=== PATIENT | female | born 1945 | race Caucasian/White ===

== ENCOUNTER → 2017-03-09 | Outpatient (CLI) | payer MEDICARE ==
[~2017-03-09] MED LIST: /MOXI40TA; /TIOT18INH INH; ACTO; ACTOS PO; ALBUTEROL INH; ALBUTEROL MDI; AMLO10TA; ASPI81TA83; ASPI81TA83 OR; ASPI81TA85 PO; BABY81CH; COMBIVENT; COUM1TAB17 PO; DIOV160T5; DIOV320T; EXCETAB80 PO; GLUC1000 OR; GLUC5TAB; IBUP600T OR; IMETREX PO; INSULADS SC; INSUR SC; LEXAPRO; LIPI10TA; METO50TA7 PO; NEUR300C PO; PERC5TAB8; PERC7.5T8; PERCOCET PO; PLAV1TAB2 PO; PRED10TA2; PRIL20CA; PRIL20CA OR; PRIL20CA PO; SENN8.6T5; SING10TA31 OR; SYNT100T; TYLE325T5 PO; TYLENOL #3 OR; VALI5TAB PO; VARE1TA; XANA0.5T PO; XOPE1.252; ZANA4CAP PO; ZEBE5TAB; ZOCO40TA; [UNRECOGNIZED DRUG - OTHER]
[2017-03-09 12:01] LABS: MEAN CORPUSCULAR HEMOGLOBIN 29.5 pg (27.0-33.0); MEAN CORPUSCULAR HGB CONC 33.4 g/dl (32.0-36.5); MEAN CORPUSCULAR VOLUME 88.4 fl (80.0-96.0); RED CELL DISTRIBUTION WIDTH 13.9 % (11.5-14.5)
[2017-03-09 12:25] LABS: CALCIUM LEVEL 9.4 MG/DL (8.8-10.2); CREATININE FOR GFR 1.11 MG/DL (0.55-1.02); GLOMERULAR FILTRATION RATE 51.7 (>39); POTASSIUM SERUM 4.4 MEQ/L (3.5-5.1)
== END ==
LOC: M LAB 11:32
PROVIDERS: ATTEND Surgery Vascular Surgery
DX: I70.212 Atherosclerosis of native arteries of extremities with intermittent claudication, left leg (principal)

== ENCOUNTER → 2017-03-22 | Outpatient (CLI) | payer MEDICARE ==
[~2017-03-22] MED LIST changes: +HEPARIN 1,000 UNITS/ML 10ML VIAL (FOR RADIOLOGY& DIALYSIS ONLY) As Ordered ONE; +ISOVUE-300 61% 50ML VIAL (Q9967) As Ordered ONE; +MIDAZOLAM INJ 2 MG/2 ML VIAL (J2250) As Ordered ONE; +fentaNYL 100 MCG/2 ML INJECTION (J3010) As Ordered ONE
--- NOTE | 2017-03-22 16:39 | REP ---
C-ARM VIEWS DURING ABDOMINAL AORTOGRAM AND LEFT LOWER EXTREMITY ANGIOGRAM: Multiple C-ARM views are performed. Abdominal aorta is visualized as well as the arteries of the left lower extremity. 3.3 minutes of fluoroscopic time was utilized for the procedure. Signed by Aiden Ferris MD 03/24/2017 05:47 P
--- NOTE | 2017-04-05 23:22 | ROOPDOC ---
[facility] Report Of Operation Report of Operation DATE OF PROCEDURE: 03/22/17 PREOPERATIVE DIAGNOSES: Bilateral lower extremity claudication left greater than right. POSTOPERATIVE DIAGNOSES: Lateral lower extremity claudication left greater than right. PROCEDURE: Aortogram. Iliofemoral angiogram. Selective left common femoral artery catheter placement with left lower extremity angiogram. Selective left popliteal artery catheter placement with angiogram. Left superficial femoral artery angioplasty with 6 mm x 100 mm balloon. Left popliteal artery angioplasty with 6 mm x 100 mm balloon. Mynx closure of the right common femoral arteriotomy SURGEON: Dr. Brittany Calderón MD LOCAL [place] TRUCK DRIVER: None INDICATION: Patient is a 72-year-old white female with with bilateral lower extremity claudication which is debilitating. The left lower extremity is more symptomatic than the right. Patient was evaluated and the recommendation was to undergo a left lower extremity and screen with possible angioplasty, stent and/or atherectomy. Risks benefits and alternative treatment options were discussed with the patient. Benefits included but are not limited to resolution of symptoms. Alternative treatment options included but are not limited to no intervention. Risks included but are not limited to infection, bleeding, renal failure requiring hemodialysis, retroperitoneal hematoma, possible need for open surgical intervention, cerebrovascular accident, myocardial infarction, pulmonary embolus, DVT, contrast dye reaction, loss of limb, loss of life and poor outcome. All the patient's questions were answered. The patient understands these risks, benefits and alternative treatment options and accepts the risks associated with the procedure and the patient agrees to proceed with the procedure. ANESTHESIA: Local with sedation with 2 mg of Versed, 100 g of fentanyl, and 10 cc of 2% lidocaine.. SEDATION TIME: 11:02 AM to 11:50 AM. The sedation and cardiopulmonary monitoring were performed by the RN in the room, under my direct supervision. The entire case was completed under my direction and I was present for the entire case. ESTIMATED BLOOD LOSS: Approximately 15 mL. IV FLUIDS: 100 cc HEPARIN: 6000 units PROTAMINE: None FLUORO TIME: 3.3 min. CONTRAST: 25 cc COMPLICATIONS: None. DRAINS: None SPECIMENS: None IMPLANTS: Right common femoral Mynx closure device PROCEDURE: The patient was taken to the angiography suite, placed supine on the angiography room table and prepped and draped in a standard surgical fashion. A procedural time out was performed by myself and the members of the team in the procedure room confirming the correct procedure, patient and laterality. The right common femoral artery was then cannulated with a micropuncture needle after anesthetizing the overlying skin with 2% lidocaine. The micropuncture wire was advanced through the micropuncture needle which was upsized to a micropuncture sheath. The [place] wire was then advanced through the micropuncture sheath which was upsized to a 5 Q[place] sheath. The Omni flush catheter was advanced over the [place] wire placed in the aorta and in aortogram was performed. The catheter was pulled down to the bifurcation of the iliac arteries in an iliofemoral angiogram was performed. The catheter was then directed over the bifurcation of the iliac arteries using the Qu[place]o wire and placed selectively in the left common femoral artery and a left lower extremity angiogram was performed. This showed an approximate 90% stenosis at the junction of the left superficial femoral artery and popliteal artery.. A 6 Q[place] destination sheath was then exchanged for the 5 [place] sheath and the 6 [place] destination sheath was brought up and over the bifurcation and positioned with the tip in the left common femoral artery. A angle Glidewire catheter were used to traverse the superficial femoral artery and popliteal artery and the catheter was used across the stenoses. Catheter was then placed in the popliteal artery below the stenosis and angiogram performed showing peroneal single vessel runoff into the foot. The superficial femoral artery and popliteal artery were angioplastied with a 6 mm x 100 mm balloon. A completion angiogram was then performed showing resolution of the stenosis in the superficial femoral and popliteal arteries with preserved tibial vessel runoff into the foot. Catheters and wires were removed. The 6 Q[place] destination sheath was exchanged for a short 6 [place] sheath. The arteriotomy in the right common femoral artery was closed using a Mynx closure device with an additional 10 min. of adjunctive pressure applied for hemostasis, which was noted. Dressings were then applied. There were no complications. Dr. Calderón was present for and directed the entire case. The patient was transferred to the holding area and subsequently discharged in stable condition. RADIOLOGIC SUPERVISION AND INTERPRETATION: The aortogram showed aortic be widely patent with some calcific plaquing. The supra renal aorta was patent. The celiac S appear mesenteric arteries were patent. The renal arteries were patent bilaterally. The infrarenal aorta was patent as well as the common iliac external iliac and internal iliac arteries bilaterally. The right common femoral and proximal superficial femoral and profunda femoris arteries were patent, there was no visualization of the right lower extremity below the puncture site. The left common femoral artery and profunda femoris arteries were patent. There was a high-grade stenosis at the junction of the superficial femoral and popliteal arteries which was approximately 90% stenotic. The lesion was crossed and a catheter placed in the below-knee popliteal artery and angiogram was performed showing single vessel runoff via the peroneal artery into the left foot. The superficial femoral and popliteal artery were and plasty with a 6 mm x 100 mm balloon. Completion angiography showed resolution of the stenosis with preserved peroneal artery runoff into the left foot. A Mynxclosure device was used to close the arteriotomy in the right common femoral artery. Darci Calderón MD Apr 05, 2017 23:22
== END | disposition home or self-care (01) ==
LOC: M IRPRO 09:14 → M RADPRO 09:14
PROVIDERS: ATTEND Surgery Vascular Surgery
DX: I70.212 Atherosclerosis of native arteries of extremities with intermittent claudication, left leg (principal)
CPT/HCPCS: 37224; 75625; 75716; 75774; 99152; 99153; C1725; C1760; C1769; C1887; C1894; J2250; J3010; Q9967

== ENCOUNTER → 2017-03-30 | Outpatient (CLI) | payer MEDICARE ==
[~2017-03-30] MED LIST changes: -HEPARIN 1,000 UNITS/ML 10ML VIAL (FOR RADIOLOGY& DIALYSIS ONLY) As Ordered ONE; -ISOVUE-300 61% 50ML VIAL (Q9967) As Ordered ONE; -MIDAZOLAM INJ 2 MG/2 ML VIAL (J2250) As Ordered ONE; -fentaNYL 100 MCG/2 ML INJECTION (J3010) As Ordered ONE
[2017-03-30 13:32] LABS: MEAN CORPUSCULAR HEMOGLOBIN 29.4 pg (27.0-33.0); MEAN CORPUSCULAR HGB CONC 33.1 g/dl (32.0-36.5); MEAN CORPUSCULAR VOLUME 88.9 fl (80.0-96.0); RED CELL DISTRIBUTION WIDTH 13.7 % (11.5-14.5); WHITE BLOOD COUNT 6.4 K/mm3 (4.0-10.0)
[2017-03-30 13:59] LABS: CALCIUM LEVEL 9.4 MG/DL (8.8-10.2); CREATININE FOR GFR 1.14 MG/DL (0.55-1.02); GLOMERULAR FILTRATION RATE 50.2 (>39)
== END ==
LOC: M LAB 11:44
PROVIDERS: ATTEND Surgery Vascular Surgery
DX: M79.604 Pain in right leg (principal)

== ENCOUNTER → 2017-04-12 | Outpatient (CLI) | payer MEDICARE ==
[~2017-04-12] MED LIST changes: +HEPARIN 1,000 UNITS/ML 10ML VIAL (FOR RADIOLOGY& DIALYSIS ONLY) As Ordered ONE; +ISOVUE-300 61% 50ML VIAL (Q9967) As Ordered ONE; +MIDAZOLAM INJ 2 MG/2 ML VIAL (J2250) As Ordered ONE; +PROTAMINE SULF INJ 50 MG/5 ML VIAL (J2720) As Ordered ONE; +fentaNYL 100 MCG/2 ML INJECTION (J3010) As Ordered ONE
--- NOTE | 2017-05-03 10:22 | REPKIM ---
DATE OF PROCEDURE: 04/12/2017 PREPROCEDURE DIAGNOSIS: Bilateral lower extremity claudication status post left superficial femoral and popliteal artery angioplasty. POSTPROCEDURE DIAGNOSIS: Bilateral lower extremity claudication status post left superficial femoral and popliteal artery angioplasty. PROCEDURE: Iliofemoral angiogram, selective right common femoral artery catheter placement with right lower extremity angiogram right superficial femoral, selective catheter placement right popliteal artery, selective catheter placement right popliteal artery angioplasty with 6 x 200 mm balloon, right superficial femoral artery angioplasty with 6 x 200 mm balloon, right common femoral artery angioplasty with 6 x 200 mm balloon, Mynx closure of the left common femoral arteriotomy. SURGEON: Dr. Racquel Calderón HEALTH INSPECTOR: Anneliese Santana and Kena Fabian. ANESTHESIA: Local with sedation with 2 mg of Versed, 100 mcg of Fentanyl and 10 mL of 2% lidocaine. ESTIMATED BLOOD LOSS: SEDATION TIME: From 10:03 a.m. to 10:40 a.m. with the sedation administered by the nurse in the room, the cardiopulmonary monitoring performed by the nurse in the room and the entire procedure being performed under my direction and supervision. FLUORO TIME: 3.9 minutes. CONTRAST: 21 mL, heparin 6000 units, protamine 50 mg. COMPLICATION: None. DRAINS: None. SPECIMENS: None. IMPLANTS: Left common femoral arteriotomy closure with a Mynx closure device. INDICATION: Patient is a 72-year-old female with bilateral lower extremity claudication left greater than right, who underwent left lower extremity angiogram with angioplasty and resolution of her symptoms. Patient has continued claudication of the right lower extremity and will now undergo a right lower extremity angiogram with possible angioplasty and/or stent. Risks, benefits and alternative treatment options were discussed with the patient. Benefits included but were not limited to treatment of the atherosclerotic arterial occlusive disease with resolution of the symptoms. Alternative treatment options included but were not limited to no intervention. Risks included but were not limited to infection, bleeding, renal failure requiring hemodialysis, possible need for open surgical intervention, retroperitoneal hematoma, cerebrovascular accident, myocardial infarction, pulmonary embolus, deep venous thrombosis (DVT), loss of limb, loss of life and poor outcome. Patient's questions were answered. Patient voices understanding of these risks, benefits and alternative treatment options. Patient agrees to accept these risks and proceed with a right lower extremity angiogram with possible angioplasty and/or stent. PROCEDURE: The patient was taken to the angiography suite and placed supine on the angiography room table and then prepped and draped in a standard surgical fashion. A time out was conducted by myself and the team within the room confirming the appropriate procedure, patient and laterality. The left common femoral artery was then cannulated with a micropuncture needle after anesthetizing the overlying skin with 1% lidocaine. The micropuncture wire was advanced through the micropuncture needle which was upsized to a micropuncture sheath. A [place] wire was advanced through the micropuncture sheath which was upsized to a #5-[place] sheath. An Omniflush catheter was placed in the aorta and an iliofemoral angiogram was performed. The catheter was then directed over the bifurcation of the iliac arteries, placed in the right common femoral artery and a right lower extremity angiogram was performed. Catheter was then directed into the superficial femoral artery and a selected right superficial femoral artery angiogram with runoff was performed. There was a lesion in the superficial femoral artery and popliteal artery junction which was high grade. This was crossed. The catheter was placed in the popliteal artery and a selected popliteal artery angiograph with runoff was performed confirming intraluminal positioning after which the right popliteal artery and superficial femoral artery were angioplastied with a 6 x 200 balloon. There was also a lesion in the proximal common femoral artery and superficial femoral artery junction which was approximately 60%. The common femoral artery and superficial femoral artery also underwent angioplasty with a 6 x 200 balloon. A completion angiogram showed resolution of the stenoses and good flow through the common femoral and superficial femoral and popliteal arteries. Catheters and wires were removed. The sheath was removed and then a Mynx closure device was used to close the arteriotomy in the left common femoral artery with an additional 10 minutes of adjunctive pressure applied for hemostasis. Steri-Strips were then applied. Patient tolerated the procedure well. All instruments, sponge and needle counts were correct at the end of the case. There were no complications. Dr. Calderón was present for and directed the entire case. Patient was transferred to the holding area and subsequently discharged in stable condition. RADIOLOGIC SUPERVISION INTERPRETATION: The initial iliofemoral angiogram showed the infrarenal aorta to have some mild irregularity and calcific plaquing but no specific stenosis or occlusion. The left common iliac, external and internal iliac arteries were widely patent as well as the left common femoral and proximal superficial femoral and profunda femoris arteries. There is no visualization of the left lower extremity below the puncture site. The right common iliac, external and internal iliac arteries were widely patent as well as the right common femoral artery. There was stenosis at the right common femoral artery junction and superficial femoral artery which was approximately 60%. The superficial femoral artery was patent along the length of the upper thigh with some mild luminal irregularities within the superficial femoral artery. There was a high grade stenosis in the superficial femoral artery just above the adductor canal which was approximately 98%. There was a second stenosis which was long segment in the superficial femoral and popliteal artery in the above knee region which were approximately 80-90%. The remainder of the above knee popliteal artery was patent giving rise to "hernial artery" of the lower extremity which is dominant. The anterior tibial artery was patent but small and severely diseased. There was no visualization of the posterior tibial artery. The popliteal artery, superficial femoral artery and common femoral artery were all angioplastied with 6 x 200 balloon with a completion angiogram showing resolution of the stenosis and excellent flow to the common femoral artery into the superficial femoral artery and popliteal artery with preserved peroneal and anterior tibial artery runoff into the right foot. A Mynx closure device was used to close the arteriotomy in the left common femoral artery.
== END | disposition home or self-care (01) ==
LOC: M RADPRO 08:36 → M IRPRO 08:36
PROVIDERS: ATTEND Surgery Vascular Surgery
DX: I70.211 Atherosclerosis of native arteries of extremities with intermittent claudication, right leg (principal)
CPT/HCPCS: 37224; 75630; 75710; 75774; 99152; 99153; C1725; C1760; C1769; C1887; C1894; J2250; J2720; J3010; Q9967

== ENCOUNTER → 2017-06-23 | Outpatient (CLI) | payer MEDICARE ==
[~2017-06-23] MED LIST changes: -HEPARIN 1,000 UNITS/ML 10ML VIAL (FOR RADIOLOGY& DIALYSIS ONLY) As Ordered ONE; -ISOVUE-300 61% 50ML VIAL (Q9967) As Ordered ONE; -MIDAZOLAM INJ 2 MG/2 ML VIAL (J2250) As Ordered ONE; -PROTAMINE SULF INJ 50 MG/5 ML VIAL (J2720) As Ordered ONE; -fentaNYL 100 MCG/2 ML INJECTION (J3010) As Ordered ONE
--- NOTE | 2017-06-23 16:15 | REP ---
BILATERAL LOWER EXTREMITY DUPLEX DOPPLER ARTERIAL ULTRASOUND: Real-time ultrasound evaluation and duplex Doppler interrogation of bilateral lower extremity arterial systems is performed. KINGS is measured bilaterally and is 0.85 bilaterally. On the right peak systolic velocity of the common femoral artery is 91.7 cm/s with biphasic wave form, peak systolic velocity right superficial femoral artery is 160 cm per second with triphasic wave form and right popliteal artery 71 cm/s with triphasic wave form. There is moderate severe plaquing throughout the right lower extremity arterial system. Right profunda demonstrates peak systolic velocity of 86.2 cm/s with monophasic wave form that is severely stenotic or occluded. Distal anterior and posterior tibial arteries demonstrate monophasic wave forms and this suggests severe stenosis. On the left peak systolic velocity of the common femoral artery is 121 cm/s with triphasic wave form, peak systolic velocity in the superficial artery is 118 cm/s. Triphasic wave form and left popliteal artery 60 cm/s with triphasic wave form. Left lower extremity arteries demonstrate moderate to severe plaquing. Monophasic wave forms in the distal left anterior and posterior tibial arteries suggests severe stenosis. Reversal of flow in the left distal anterior tibial arteries suggests occlusion, more proximally with reconstitution from a distal collateral vessel. Signed by Aiden Ferris MD 06/24/2017 05:42 P
== END ==
LOC: M RAD 12:23
PROVIDERS: ATTEND Surgery Vascular Surgery
DX: I70.213 Atherosclerosis of native arteries of extremities with intermittent claudication, bilateral legs (principal)

== ENCOUNTER → 2017-07-19 | Outpatient (CLI) | payer MEDICARE ==
--- NOTE | 2017-07-19 13:49 | REP ---
Clinical: Dyspnea. Cough. Comparison: 10/30/2014 . Technique: PA and lateral. Findings: The mediastinum and cardiac silhouette are normal. The lung huynh are clear and without acute consolidation, effusion, or pneumothorax. The skeletal structures are intact and normal. Evidence of prior thyroid and mediastinal/cardiac surgery. Impression: 1. No acute cardiopulmonary process. Signed by Maximus Avery MD 07/19/2017 12:16 P
== END ==
LOC: M SMT 11:56
PROVIDERS: ATTEND Physician Assistant
DX: J15.8 Pneumonia due to other specified bacteria (principal)

== ENCOUNTER 2017-08-28 11:08 | Emergency (ER) | payer MEDICARE ==
[2017-08-28] MEDS: IPRATROPIUM 0.5MG/ALBUTEROL 2.5MG INH SOL UD 3ML (DUONEB)(J7620) NEB ×2 (13:36)
[2017-08-28] MEDS: methylPREDNISolone INJ 125 MG/2 ML VIAL (J2930) IM (13:50)
[2017-08-28 14:15] LABS: BEDSIDE GLUCOSE 195 MG/DL (83-110)
== END 2017-08-28 14:26 | disposition home or self-care (01) ==
LOC: M ED 11:08
DX: J44.1 Chronic obstructive pulmonary disease with (acute) exacerbation (principal); E11.65 Type 2 diabetes mellitus with hyperglycemia; R94.31 Abnormal electrocardiogram [ECG] [EKG]; I25.10 Atherosclerotic heart disease of native coronary artery without angina pectoris; F17.210 Nicotine dependence, cigarettes, uncomplicated; Z79.4 Long term (current) use of insulin; Z79.899 Other long term (current) drug therapy; Z79.82 Long term (current) use of aspirin; Z88.1 Allergy status to other antibiotic agents; Z87.19 Personal history of other diseases of the digestive system; Z95.5 Presence of coronary angioplasty implant and graft; Z98.890 Other specified postprocedural states; Z90.89 Acquired absence of other organs
CPT/HCPCS: J2930

== ENCOUNTER → 2017-09-20 | Outpatient (CLI) | payer MEDICARE ==
[2017-09-20 17:40] LABS: BASO % 0.5 % (0.0-1.0); EOS # 0.2 10^3/uL (0.0-0.50); EOS % 3.3 % (0.0-3.0); HEMATOCRIT 43.9 % (36.0-47.0); HEMOGLOBIN 14.1 g/dl (12.0-16.0); IMMATURE GRANULOCYTE % 0.5 % (0-0); LYMPH % 33.7 % (24.0-44.0); MEAN CORPUSCULAR HEMOGLOBIN 27.9 pg (27.0-33.0); MEAN CORPUSCULAR HGB CONC 32.1 g/dl (32.0-36.5); MEAN CORPUSCULAR VOLUME 86.9 fl (80.0-96.0); MONO # 0.5 10^3/uL (0.0-0.8); MONO % 7.7 % (0.0-5.0); NEUTROPHILS # 3.3 10^3/uL (1.8-7.7); NEUTROPHILS % 54.3 % (36.0-66.0); PLATELET COUNT, AUTOMATED 328 10^3/uL (150-450); RED BLOOD COUNT 5.05 10^6/uL (4.00-5.40); RED CELL DISTRIBUTION WIDTH 13.2 % (11.5-14.5)
[2017-09-20 18:10] LABS: ALBUMIN 3.6 GM/DL (3.2-5.2); ALBUMIN/GLOBULIN RATIO 1.06 (1.00-1.93); ALKALINE PHOSPHATASE 115 U/L (45-117); ALT/SGPT 21 U/L (12-78); ANION GAP 8 MEQ/L (8-16); AST/SGOT 7 U/L (7-37); BILIRUBIN,TOTAL 0.2 MG/DL (0.2-1.0); BLOOD UREA NITROGEN 18 MG/DL (7-18); CALCIUM LEVEL 9.8 MG/DL (8.8-10.2); CARBON DIOXIDE LEVEL 33 MEQ/L (21-32); CHLORIDE LEVEL 94 MEQ/L (98-107); CREATININE FOR GFR 1.27 MG/DL (0.55-1.02); FREE T4 0.98 NG/DL (0.76-1.46); GLOMERULAR FILTRATION RATE 44.3 (>39); NT-PRO BNP 164 PG/ML (<125); SODIUM LEVEL 135 MEQ/L (136-145)
[2017-09-20 18:31] LABS: GLUCOSE, FASTING 544 MG/DL (70-100)
[2017-09-20 18:32] LABS: POTASSIUM SERUM 5.5 MEQ/L (3.5-5.1)
== END ==
LOC: M SMT 14:18
DX: R53.83 Other fatigue (principal)
CPT/HCPCS: 84443

== ENCOUNTER → 2017-09-27 | Outpatient (CLI) | payer MEDICARE | LOC: M RAD 15:16 | DX: M51.36 Other intervertebral disc degeneration, lumbar region (principal) | CPT/HCPCS: 72148 ==

== ENCOUNTER → 2018-01-05 | Outpatient (CLI) | payer MEDICARE | LOC: M RAD 11:33 | DX: I70.233 Atherosclerosis of native arteries of right leg with ulceration of ankle (principal) | CPT/HCPCS: 93925 ==

== ENCOUNTER → 2018-01-27 | Outpatient (CLI) | payer MEDICARE ==
[~2018-01-27] MED LIST changes: -/MOXI40TA; -/TIOT18INH INH; +ACETAMINOPHEN 325 MG TAB As Ordered; -ACTO; -ACTOS PO; -ALBUTEROL INH; -ALBUTEROL MDI; -AMLO10TA; -ASPI81TA83; -ASPI81TA83 OR; -ASPI81TA85 PO; -BABY81CH; -COMBIVENT; -COUM1TAB17 PO; -DIOV160T5; -DIOV320T; -EXCETAB80 PO; -GLUC1000 OR; -GLUC5TAB; +HEPARIN 1,000 UNITS/ML 10ML VIAL (FOR RADIOLOGY& DIALYSIS ONLY) As Ordered; -IBUP600T OR; -IMETREX PO; -INSULADS SC; -INSUR SC; +ISOVUE-300 61% 50ML VIAL (Q9967) As Ordered; -LEXAPRO; +LIDOCAINE 2% MDV 20 ML VIAL As Ordered; -LIPI10TA; -METO50TA7 PO; +MIDAZOLAM INJ 2 MG/2 ML VIAL (J2250) As Ordered; -NEUR300C PO; -PERC5TAB8; -PERC7.5T8; -PERCOCET PO; -PLAV1TAB2 PO; -PRED10TA2; -PRIL20CA; -PRIL20CA OR; -PRIL20CA PO; -SENN8.6T5; -SING10TA31 OR; -SYNT100T; -TYLE325T5 PO; -TYLENOL #3 OR; -VALI5TAB PO; -VARE1TA; -XANA0.5T PO; -XOPE1.252; -ZANA4CAP PO; -ZEBE5TAB; -ZOCO40TA; -[UNRECOGNIZED DRUG - OTHER]; +fentaNYL 100 MCG/2 ML INJECTION (J3010) As Ordered
[2018-01-27 06:58] LABS: HEMATOCRIT 42.1 % (36.0-47.0); HEMOGLOBIN 13.8 g/dl (12.0-15.5); MEAN CORPUSCULAR HEMOGLOBIN 28.8 pg (27.0-33.0); MEAN CORPUSCULAR HGB CONC 32.8 g/dl (32.0-36.5); MEAN CORPUSCULAR VOLUME 87.9 fl (80.0-96.0); PLATELET COUNT, AUTOMATED 337 10^3/uL (150-450); RED BLOOD COUNT 4.79 10^6/uL (4.00-5.40); RED CELL DISTRIBUTION WIDTH 13.4 % (11.5-14.5); WHITE BLOOD COUNT 8.3 10^3/uL (4.0-10.0)
[2018-01-27 07:17] LABS: ANION GAP 5 MEQ/L (8-16); BLOOD UREA NITROGEN 29 MG/DL (7-18); CALCIUM LEVEL 8.6 MG/DL (8.8-10.2); CARBON DIOXIDE LEVEL 31 MEQ/L (21-32); CHLORIDE LEVEL 105 MEQ/L (98-107); GLOMERULAR FILTRATION RATE 52.3 (>39); GLUCOSE, FASTING 153 MG/DL (70-100); POTASSIUM SERUM 4.5 MEQ/L (3.5-5.1); SODIUM LEVEL 141 MEQ/L (136-145)
== END | disposition home or self-care (01) ==
LOC: M IRPRO 06:36
DX: I70.221 Atherosclerosis of native arteries of extremities with rest pain, right leg (principal); Z72.0 Tobacco use; E11.9 Type 2 diabetes mellitus without complications; I25.10 Atherosclerotic heart disease of native coronary artery without angina pectoris; J44.9 Chronic obstructive pulmonary disease, unspecified; M51.36 Other intervertebral disc degeneration, lumbar region; M48.062 Spinal stenosis, lumbar region with neurogenic claudication
CPT/HCPCS: 37224

== ENCOUNTER → 2018-02-06 | Outpatient (CLI) | payer MEDICARE ==
[~2018-02-06] MED LIST changes: -ACETAMINOPHEN 325 MG TAB As Ordered; -LIDOCAINE 2% MDV 20 ML VIAL As Ordered; +NORCO, ANEXSIA 5/325MG TABLET (HYDROcodone/ACETAMINOPHEN) As Ordered
== END | disposition home or self-care (01) ==
LOC: M IRPRO 07:40
DX: I70.213 Atherosclerosis of native arteries of extremities with intermittent claudication, bilateral legs (principal); M51.36 Other intervertebral disc degeneration, lumbar region
CPT/HCPCS: 36247

== ENCOUNTER → 2018-03-22 | Outpatient (CLI) | payer MEDICARE ==
[2018-03-22 17:32] LABS: BASO # 0.1 10^3/uL (0.0-0.2); BASO % 0.8 % (0.0-1.0); EOS # 0.4 10^3/uL (0.0-0.50); EOS % 4.9 % (0.0-3.0); HEMATOCRIT 41.7 % (36.0-47.0); HEMOGLOBIN 13.4 g/dl (12.0-15.5); IMMATURE GRANULOCYTE % 0.3 % (0-3.0); LYMPH # 2.8 10^3/uL (1.5-4.5); LYMPH % 36.1 % (24.0-44.0); MEAN CORPUSCULAR HEMOGLOBIN 29.8 pg (27.0-33.0); MEAN CORPUSCULAR HGB CONC 32.1 g/dl (32.0-36.5); MEAN CORPUSCULAR VOLUME 92.7 fl (80.0-96.0); MONO # 0.6 10^3/uL (0.0-0.8); MONO % 8.1 % (0.0-5.0); NEUTROPHILS # 3.8 10^3/uL (1.8-7.7); NEUTROPHILS % 49.8 % (36.0-66.0); PLATELET COUNT, AUTOMATED 292 10^3/uL (150-450); RED CELL DISTRIBUTION WIDTH 13.7 % (11.5-14.5); WHITE BLOOD COUNT 7.6 10^3/uL (4.0-10.0)
[2018-03-22 17:58] LABS: ALBUMIN 3.5 GM/DL (3.2-5.2); ALBUMIN/GLOBULIN RATIO 1.25 (1.00-1.93); ALKALINE PHOSPHATASE 69 U/L (45-117); ALT/SGPT 16 U/L (12-78); ANION GAP 6 MEQ/L (8-16); AST/SGOT 7 U/L (7-37); BILIRUBIN,TOTAL 0.2 MG/DL (0.2-1.0); BLOOD UREA NITROGEN 31 MG/DL (7-18); CALCIUM LEVEL 8.5 MG/DL (8.8-10.2); CARBON DIOXIDE LEVEL 30 MEQ/L (21-32); CHLORIDE LEVEL 107 MEQ/L (98-107); CREATININE FOR GFR 1.56 MG/DL (0.55-1.30); FREE T4 0.95 NG/DL (0.76-1.46); GLOMERULAR FILTRATION RATE 34.8 (>39); GLUCOSE, FASTING 98 MG/DL (70-100); POTASSIUM SERUM 4.3 MEQ/L (3.5-5.1); SODIUM LEVEL 143 MEQ/L (136-145); TOTAL PROTEIN 6.3 GM/DL (6.4-8.2)
== END ==
LOC: M SMT 13:41
DX: K21.9 Gastro-esophageal reflux disease without esophagitis (principal); I73.9 Peripheral vascular disease, unspecified; E78.2 Mixed hyperlipidemia
CPT/HCPCS: 84443

== ENCOUNTER → 2018-03-29 | Outpatient (REF) | payer MEDICARE | LOC: M LAB REF 14:13 | DX: R19.7 Diarrhea, unspecified (principal) | CPT/HCPCS: 87507 ==

== ENCOUNTER 2018-05-13 18:34 | Emergency (ER) | payer MEDICARE ==
[2018-05-13 19:53] LABS: BASO # 0.1 10^3/uL (0.0-0.2); BASO % 0.8 % (0.0-1.0); EOS % 0.4 % (0.0-3.0); HEMATOCRIT 49.3 % (36.0-47.0); HEMOGLOBIN 15.7 g/dl (12.0-15.5); IMMATURE GRANULOCYTE % 0.2 % (0-3.0); LYMPH # 2.8 10^3/uL (1.5-4.5); MEAN CORPUSCULAR HGB CONC 31.8 g/dl (32.0-36.5); MONO # 0.5 10^3/uL (0.0-0.8); MONO % 4.9 % (0.0-5.0); NEUTROPHILS # 6.6 10^3/uL (1.8-7.7); NEUTROPHILS % 65.7 % (36.0-66.0); PLATELET COUNT, AUTOMATED 314 10^3/uL (150-450); RED BLOOD COUNT 5.42 10^6/uL (4.00-5.40); RED CELL DISTRIBUTION WIDTH 12.8 % (11.5-14.5)
[2018-05-13] MEDS: MORPHINE 4 MG/ML 1ML VIAL/SYRINGE (J2270) IV (19:58)
[2018-05-13] MEDS: NS 500 ML IV (19:58)
[2018-05-13] MEDS: METOCLOPRAMIDE INJ 10MG/2ML VIAL (J2765) IV (19:58)
[2018-05-13 20:02] LABS: ALBUMIN 3.8 GM/DL (3.2-5.2); ALBUMIN/GLOBULIN RATIO 1.03 (1.00-1.93); ALKALINE PHOSPHATASE 133 U/L (45-117); ALT/SGPT 60 U/L (12-78); ANION GAP 9 MEQ/L (8-16); AST/SGOT 43 U/L (7-37); BILIRUBIN,DIRECT 0.1 MG/DL (0.0-0.2); BILIRUBIN,TOTAL 0.3 MG/DL (0.2-1.0); BLOOD UREA NITROGEN 23 MG/DL (7-18); CALCIUM LEVEL 9.3 MG/DL (8.8-10.2); CARBON DIOXIDE LEVEL 30 MEQ/L (21-32); CHLORIDE LEVEL 100 MEQ/L (98-107); CPK CREATINE PHOSPHOKINASE 52 U/L (26-192); CREATININE FOR GFR 1.87 MG/DL (0.55-1.30); GLOMERULAR FILTRATION RATE 28.3 (>39); GLUCOSE, FASTING 205 MG/DL (70-100); LIPASE 171 U/L (73-393); MB/CK RELATIVE INDEX 3.46 (< OR =4); POTASSIUM SERUM 4.6 MEQ/L (3.5-5.1); SODIUM LEVEL 139 MEQ/L (136-145); TOTAL PROTEIN 7.5 GM/DL (6.4-8.2)
[2018-05-13 21:13] LABS: LACTIC ACID SEPSIS PROTOCOL 1.1 MMOL/L (0.4-2.0)
== END 2018-05-13 23:19 | disposition home or self-care (01) ==
LOC: M ED 18:34
DX: K52.9 Noninfective gastroenteritis and colitis, unspecified (principal); E11.9 Type 2 diabetes mellitus without complications; I10 Essential (primary) hypertension; J44.9 Chronic obstructive pulmonary disease, unspecified; I25.10 Atherosclerotic heart disease of native coronary artery without angina pectoris; K21.9 Gastro-esophageal reflux disease without esophagitis; F41.9 Anxiety disorder, unspecified; Z79.899 Other long term (current) drug therapy; Z79.82 Long term (current) use of aspirin; Z79.02 Long term (current) use of antithrombotics/antiplatelets; Z79.4 Long term (current) use of insulin; Z88.1 Allergy status to other antibiotic agents; F17.210 Nicotine dependence, cigarettes, uncomplicated
CPT/HCPCS: J2270